=== PATIENT | male | born 1980 | race Two or more races ===

== ENCOUNTER → 2025-06-29 | Outpatient (CLI) | payer MEDICAID, SELFPAY ==
--- NOTE | 2025-06-29 15:37 | XR_ITS ---
Examination: Duplex scan of the lower extremity, unilateral right complete Date and time of exam: June 29, 2025, 1555 hours Right knee pain beginning 1 week ago Technique: Duplex scan of the extremity veins using B-mode/grayscale imaging and Doppler spectral analysis and color flow Attention is directed to internal echogenicity, compression and augmentation involving these veins, color flow assessment, spectral analysis Findings: Major deep venous structures in the extremity demonstrate normal course and caliber. There is no evidence of deep vein thrombosis. Normal color flow and spectral analysis Impression: Negative for DVT..
== END | disposition home or self-care (01) ==
LOC: CDIM 15:26
PROVIDERS: PCP Physician Assistant; Referring Provider Physician Assistant; Visit Provider Physician Assistant
DX: M25.561 Pain in right knee (principal)
CPT/HCPCS: 93971